=== PATIENT | female | born 1985 | race Caucasian/White ===

== ENCOUNTER → 2016-06-24 | Outpatient (CLI) | payer BC ==
[~2016-06-24] MED LIST: ATEN25TA PO; BUPR100T4 PO; BUPR150T3 PO; CIPR500T4 PO; CYCL-36 PO; DEPO400I IM; IBUP800 PO; METR-1 PO; ROPI0.25 PO; STOO100C PO; TYLE3 PO; VENTAER INH
[2016-06-24 12:00] LABS: HEMATOCRIT 40.6 % (35.0-46.0); MEAN CELL VOLUME 85.8 FL (80.0-100.0); MEAN CORPUSCULAR HEMOGLOBIN 28.6 PG (27.0-34.0); MEAN CORPUSCULAR HGB CONC 33.4 % (32.0-36.0); PLATELET COUNT 338 TH/MM3 (150-450); RED BLOOD COUNT 4.73 MIL/MM3 (4.00-5.30); RED CELL DISTRIBUTION WIDTH 15.2 % (11.6-17.2); REVIEW FLAG FINAL; WHITE BLOOD COUNT 5.8 TH/MM3 (4.0-11.0)
== END ==
LOC: CPRE 09:57
PROVIDERS: ATTEND Obstetrics & Gynecology
DX: Z01.812 Encounter for preprocedural laboratory examination (principal); N92.0 Excessive and frequent menstruation with regular cycle
CPT/HCPCS: 36415; 84703; 85027

== ENCOUNTER 2016-06-29 07:47 | Observation (INO) | payer BC ==
[~2016-06-29] VITALS: Ht 170.2 cm; Wt 69.7 kg
[~2016-06-29 07:47] MED LIST changes: -BUPR150T3 PO; -CIPR500T4 PO; -CYCL-36 PO; -DEPO400I IM; -IBUP800 PO; -METR-1 PO; -STOO100C PO; -TYLE3 PO; -VENTAER INH
[2016-06-29 08:37] VITALS: BP 116/69; PULSE 78; RESP 18; TEMP 98.2; O2SAT 98
[2016-06-29] MEDS ORDERED: ONDANSETRON HCL 4 MG/2 ML VIAL IV PUSH ONE ×2 (09:00→11:17)
[2016-06-29] MEDS ORDERED: METOPROLOL TARTRATE 25 MG TAB PO PRN (09:00)
[2016-06-29] MEDS ORDERED: INSULIN HUMAN REGULAR 1,000 UNITS/10 ML VIAL SQ PRN (09:00)
[2016-06-29] MEDS ORDERED: ceFAZolin 1,000 MG/NS 100 ML IV SCH ×2 (09:00)
[2016-06-29] MEDS ORDERED: LACTATED RINGER'S 1000 ML IV SCH (09:00)
[2016-06-29] MEDS ORDERED: MIDAZOLAM HCL 2 MG/2 ML VIAL IV ONE (09:00)
[2016-06-29] MEDS: SODIUM CHLORID 0.9% 500 ML IV SCH (09:00)
[2016-06-29] MEDS ORDERED: ACETAMINOPHEN 1000 MG/100 ML VIAL IV ONE (11:05)
[2016-06-29] MEDS ORDERED: ARTIFICIAL TEARS OPTH OINT 3.5 APPLIC/3.5 GM TUBO ONE (11:05)
[2016-06-29] MEDS ORDERED: FAMOTIDINE 20 MG/2 ML VIAL ONE (11:05)
[2016-06-29] MEDS ORDERED: MIDAZOLAM HCL 2 MG/2 ML VIAL ONE (11:06)
[2016-06-29] MEDS ORDERED: DEXAMETHASONE SOD PHOS 4 MG/ML VIAL ONE (11:06)
[2016-06-29] MEDS ORDERED: LACTATED RINGER'S 1000 ML INJ 2,000 ML IV ONE (11:17)
[2016-06-29] MEDS ORDERED: PROPOFOL 200 MG/20 ML AMP IV ONE (11:17)
[2016-06-29] MEDS ORDERED: KETOROLAC TROMETHAMINE 60 MG/2 ML (IM) VIAL IM ONE (11:17)
[2016-06-29] MEDS ORDERED: NEOSTIGMINE 3 MG/3 ML SYR IV ONE (11:17)
[2016-06-29] MEDS ORDERED: DO NOT ADM ANY ANTICOAGULANT DRUGS XX PRN ×2 (12:48)
[2016-06-29] MEDS ORDERED: MORPHINE SULFATE 30 MG/30 ML PCA ONE (12:54)
[2016-06-29] MEDS ORDERED: fentaNYL CITRATE 250 MCG/5 ML AMP ONE (12:55)
[2016-06-29] MEDS: PCA - TOTAL MG MORPHINE DELIVERED PER SHIFT SCH ×2 (14:00→22:00)
[2016-06-29] MEDS ORDERED: oxyCODONE/ACETAMINOPHEN 5 MG/325 MG TAB PO PRN (14:00)
[2016-06-29] MEDS: DEXT 5%-NACL 0.45% 1000 ML INJ 1,000 ML IV SCH ×2 (14:00→20:37)
[2016-06-29] MEDS ORDERED: NALOXONE HCL 0.4 MG/ML AMP IV PRN (14:00)
[2016-06-29] MEDS ORDERED: diphenhydrAMINE HCL 50 MG/ML VIAL IV PUSH PRN (14:00)
[2016-06-29] MEDS ORDERED: MORPHINE SULFATE 30 MG/30 ML PCA IV SCH (14:00)
--- NOTE | 2016-06-29 14:20 | EKG ---
Date Performed: 06/29/2016 Time Performed: 08:48:49 PTAGE: 30 years EKG: Sinus rhythm WITH FREQUENT VENTRICULAR PREMATURE COMPLEXES NONSPECIFIC T-WAVE ABNORMALITY ABNORMAL RHYTHM ECG NO PREVIOUS TRACING DOCTOR: Tomás Esparza Interpretating Date/Time 06/29/2016 14:17:31
[2016-06-29 14:50] VITALS: BP 89/54; PULSE 62; RESP 16; TEMP 97.6; O2SAT 100
[2016-06-29] MEDS: ONDANSETRON HCL 4 MG/2 ML VIAL IV PUSH PRN ×2 (14:53→21:14)
[2016-06-29 16:00] VITALS: BP 96/64; PULSE 63; RESP 16; TEMP 97.6; O2SAT 100
[2016-06-29 16:18] VITALS: O2SAT 99
[2016-06-29 16:46] LABS: HEMATOCRIT 36.1 % (35.0-46.0); REVIEW FLAG FINAL
[2016-06-29 20:00] VITALS: BP 105/53; PULSE 80; RESP 18; TEMP 98.1; O2SAT 98
[2016-06-29] MEDS: ATENOLOL 25 MG TAB PO SCH ×2 (20:32→20:39)
[2016-06-29] MEDS: buPROPion HCL 100 MG TAB PO SCH (20:37)
[2016-06-30] VITALS: BP 91/55; PULSE 73; RESP 17; TEMP 97.2; O2SAT 99
[2016-06-30] MEDS: SODIUM CHLORID 0.9% 500 ML IV SCH (01:40)
[2016-06-30 04:00] VITALS: BP 93/53; PULSE 73; RESP 17; TEMP 97.7; O2SAT 98
[2016-06-30 04:35] VITALS: O2SAT 98
[2016-06-30] MEDS: PCA - TOTAL MG MORPHINE DELIVERED PER SHIFT SCH (05:01)
[2016-06-30] MEDS: DEXT 5%-NACL 0.45% 1000 ML INJ 1,000 ML IV SCH (05:01)
[2016-06-30 06:53] LABS: HEMATOCRIT 35.1 % (35.0-46.0); REVIEW FLAG FINAL
[2016-06-30 07:27] VITALS: BP 103/63; PULSE 72; RESP 18; TEMP 96.7; O2SAT 100
[2016-06-30] MEDS: buPROPion HCL 100 MG TAB PO SCH (09:14)
--- NOTE | 2016-07-09 07:07 | MP ---
cc: LAKHWINDER GRAJEDA DATE OF SURGERY 06/29/2016 PREOPERATIVE DIAGNOSES 1. Menorrhagia. 2. Bicornuate uterus. POSTOPERATIVE DIAGNOSES 1. Menorrhagia. 2. Bicornuate uterus. PROCEDURE Laparoscopic-assisted supracervical hysterectomy. SURGEON MD Taras ANESTHESIA General. ESTIMATED BLOOD LOSS 100 cc. COMPLICATIONS None. FINDINGS The patient had a uterus that was wider than typical and consistent with being bicornuate. The ovaries and fallopian tubes were unremarkable. The upper abdominal organs were normal as far as could be visualized. DESCRIPTION OF PROCEDURE The patient was brought into the operating room and following general anesthesia was placed in the dorsal lithotomy position. Her vagina, abdomen and perineum were prepped and draped. The HUMI catheter was placed in the uterus and a Arteaga catheter into the bladder. A 1-cm subumbilical skin incision was made. The Veress needle was inserted and 3 liters of CO2 was infused into the abdomen. The Veress needle was then removed and the laparoscope was placed without difficulty. A second and third puncture site were created under direct visualization. The findings were as noted above. The harmonic scalpel was used to clamp, cut and seal the upper broad ligaments and round ligaments. The bladder peritoneum was incised and the bladder was sharply dissected off the anterior cervix. The uterine vessels were skeletonized and then clamped, cut and sealed with the harmonic scalpel. The cervix was then transected across the upper portion with the harmonic scalpel. The stump of the cervix and the endocervical canal were cauterized. Good hemostasis was noted at all sites. The uterus was then morcellated and removed. The pelvis was copiously irrigated and again good hemostasis was seen. With no other abnormalities present, first the tubes were removed by sealing the mesosalpinx with the harmonic scalpel and then all instruments were removed and the CO2 gas was allowed to escape. The incisions were then closed subcuticular with #4-0 Vicryl stitch. The patient was then taken to the recovery room in good condition with all counts correct and clear urine draining in her Arteaga catheter. Lakhwinder Grajeda MD TGS/SSB /11:59 AM /6:57 AM
== END 2016-06-30 11:24 | disposition home or self-care (01) ==
LOC: HSDC 07:47 → HOCA 13:46
PROVIDERS: ADMIT Obstetrics & Gynecology; ATTEND Obstetrics & Gynecology
DX: N92.0 Excessive and frequent menstruation with regular cycle (principal); Q51.3 Bicornate uterus; R94.31 Abnormal electrocardiogram [ECG] [EKG]
CPT/HCPCS: 00840; 58542; 85014; 85018; 86850; 86900; 86901; 88307; 93005; G0378; J0131; J0690; J1100; J1885; J2250; J2270; J2405; J2710; J3010; J7120